=== PATIENT | male | born 1965 ===

== ENCOUNTER 2019-06-15 10:43 | Emergency (ER) | payer OTHER, MEDICAID, SELFPAY ==
[2019-06-15] VITALS (11 sets, daily range): BP systolic 116–142; BP diastolic 70–88; PULSE 81–98; RESP 14–21; TEMP 37.1; O2SAT 95–100; BMI 41.1
--- NOTE | 2019-06-15 | DI.CT.S_ITS ---
PROCEDURE: CT ABDOMEN PELVIS WO CON INDICATIONS: CT CYSTOGRAM per Dr. Jimenez TECHNIQUE: After the ministration of 10 mL of Cystografin through patient's Bustamante catheter into the bladder, 5 mm thick sections acquired from the diaphragms to the symphysis. 5 mm coronal and sagittal reformats were then performed. For radiation dose reduction, the following was used: automated exposure control, adjustment of mA and/or kV according to patient size. COMPARISON: [facility], US, US SCROTUM, 06/15/2019, 12:12. [facility], CT, CT CHEST ABD PEL W CON, 06/15/2019, 12:56. FINDINGS: Image quality: Excellent. ABDOMEN: Lung bases: There is mild dependent atelectasis bilaterally. Heart size is normal. Solid organs: Noncontrast evaluation of the liver demonstrates no lacerations. No perihepatic fluid collections. Gallbladder appears within normal limits without calcified gallstones. Pancreas is normal in contours. Spleen is normal in size. No adrenal nodules. Kidney demonstrate no hydronephrosis. There is contrast in the renal collecting systems from recent CT. Mild nonspecific perinephric stranding is redemonstrated bilaterally. Peritoneum and bowel: Small and large bowel loops demonstrate normal wall thickness and caliber. No free fluid or air. Nodes and vessels: No retroperitoneal or mesenteric adenopathy by size criteria. Aorta and inferior vena cava are normal in caliber. Miscellaneous: No ventral hernias. PELVIS: Genitourinary: There is no evidence of contrast extravasation to suggest a bladder perforation. A Bustamante catheter is demonstrated within the bladder with intraluminal gas. A small amount of contrast is noted in the distal right ureter which may represent reflux of contrast or excreted contrast from the renal collecting systems. Miscellaneous: A large right scrotal hematoma it is redemonstrated with extensive subcutaneous edema. No inguinal hernias or adenopathy. Bones: A relatively nondisplaced fracture of the left superior pubic ramus is redemonstrated. Bony pelvis otherwise appears intact. No vertebral body compression fractures. IMPRESSION: 1. No contrast extravasation to suggest bladder perforation. 2. Large right scrotal hematoma redemonstrated. 3. Nondisplaced left superior pubic ramus fracture also redemonstrated. Dictated by: Aditya Cristobal M.D. on 06/15/2019 at 16:21 Approved by: Aditya Cristobal M.D. on 06/15/2019 at 16:26
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
[2019-06-15 12:17] LABS: Appearance Urine UA SL CLOUDY; Color Urine UA YELLOW; Glucose Urine UA NEGATIVE (Negative); Ketones Urine UA TRACE (NEGATIVE); Leukocyte Esterase Urine UA NEGATIVE (NEGATIVE); Nitrite Urine UA NEGATIVE (Negative); Occult Blood Urine UA 3+ (Negative); Protein Urine UA 1+ (Negative); Specific Gravity Urine UA >=1.030 (1.000-1.035); Urobilinogen Urine UA 0.2 E.U./dL (0.2); pH Urine UA 5.5 (4.5-8.0)
[2019-06-15 12:28] LABS: Amorphous Sediment Urine 1+; Bacteria Urine Occasional (0-1); Calcium Oxalate Crystals Urine Moderate; Culture Indicated Urine Cult Not Indicated; RBC Urine 30-100/HPF (0-5/HPF); Squamous Epithelial Cell Urine 0-1 /HPF (0-5/HPF); WBC Urine 1-5/HPF (0-5/HPF)
[2019-06-15 12:31] LABS: Ictotest Urine Negative (Negative)
[2019-06-15 12:32] LABS: Bilirubin Urine UA 1+ (NEGATIVE)
[2019-06-15 12:40] LABS: Add Manual Diff / Slide Review NO; Basophils Absolute Auto 100 /uL (0-100); Basophils Percent Auto 0.6 % (0-2); Eosinophils Absolute Auto 200 /uL (0-450); Eosinophils Percent Auto 1.6 % (2-4); Hematocrit 36.5 % (41-53); Hemoglobin 12.3 g/dL (13.5-17.5); Lymphocytes Absolute Auto 1000 /uL (1100-4500); Lymphocytes Percent Auto 9.6 % (25-40); Mean Corpuscular HGB Conc 33.6 % (30-36); Mean Corpuscular Hemoglobin 29.6 PG (26-34); Mean Corpuscular Volume 88.3 fL (80-100); Monocytes Absolute Auto 1000 /uL (0-900); Monocytes Percent Auto 9.9 % (3-14); Neutrophils Absolute Auto 7900 /uL (1500-7000); Neutrophils Percent Auto 78.3 % (50-75); Platelet Count 242 X10^3/uL (150-400); Red Blood Cell Count 4.14 X10^6/uL (4.5-5.9); Red Cell Distribution Width 13.9 % (11.6-14.8); White Blood Cell Count 10.1 X10^3/uL (4.5-11.0)
[2019-06-15] MEDS: ONDANSETRON 4 MG/2 ML INJ IV (12:45)
[2019-06-15 12:51] LABS: Alanine Aminotransferase 28 IU/L (21-72); Albumin 3.7 g/dL (3.5-5.0); Albumin Globulin Ratio 1.3 (1.0-2.8); Alkaline Phosphatase 123 U/L (38-126); Aspartate Aminotransferase 29 IU/L (17-59); BUN Creatinine Ratio 17.1 (6-22); Bilirubin Total 0.4 mg/dL (0.2-1.3); Blood Urea Nitrogen 12 mg/dL (9-20); Calcium 8.8 mg/dL (8.4-10.2); Carbon Dioxide 26 mmol/L (22-32); Chloride 101 mmol/L (98-107); Creatine Kinase 308 U/L (55-170); Estimated Glomerular Filt Rate > 60.0 mL/min (>60); Globulin 2.8 g/dL (1.7-4.1); Glucose 118 mg/dL (70-100); HEMOLYSIS < 15 (0-50); Lipase 309 U/L (23-300); Potassium 3.8 mmol/L (3.4-5.1); Sodium 137 mmol/L (137-145); Total Protein 6.5 g/dL (6.3-8.2)
[2019-06-15 13:08] LABS: UR Morphine/Opiate cutoff 300 Negative (Negative); Ur Creatinine Normal (Normal); Ur Specific Gravity Abnormal (Normal); Urine Cocaine Negative (Negative); Urine Tetrahydrocannabinol Positive (Negative); Urine pH Normal (Normal)
[2019-06-15 13:09] LABS: Burprenorphine Negative (Negative); Urine Amphetamines Positive (Negative); Urine Barbiturates Negative (Negative); Urine Benzodiazepines Positive (Negative); Urine MDMA Positive (Negative); Urine Methadone Negative (Negative); Urine Methamphetamines Positive (Negative); Urine Morphine/Opi cutoff 2000 Negative (Negative); Urine Oxycodone Negative (Negative); Urine Phencyclidine Negative (Negative); Urine Tricyclic Antidepressant Positive (Negative)
[2019-06-15] MEDS: MORPHINE 4 MG/ML INJ IV (16:19)
[2019-06-15] MEDS: HYDROMORPHONE 0.5 MG INJ IV (18:25)
--- NOTE | 2019-06-15 18:35 | PC.NURSE ---
[facility] d/c, Pt tolerates.
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
== END 2019-06-15 19:20 | disposition home or self-care (01) ==
PROVIDERS: Emergency Provider Emergency Medicine; PCP Family Medicine
DX: S32.512A Fracture of superior rim of left pubis, initial encounter for closed fracture (principal); S30.22XA Contusion of scrotum and testes, initial encounter; V49.40XA Driver injured in collision with unspecified motor vehicles in traffic accident, initial encounter
CPT/HCPCS: 71260; 74176; 74177; 76870; 80053; 80305; 81003; 81015; 82550; 83690; 85025; 96374; 96375; 99284; 99285; J1170; J2270; J2405; Q9967

== ENCOUNTER 2019-06-21 17:08 | Emergency (ER) | payer OTHER, MEDICAID, SELFPAY ==
[2019-06-21 17:19] VITALS: BP 129/77; PULSE 93; RESP 12; TEMP 36.7; O2SAT 99; BMI 31.4
--- NOTE | 2019-06-21 17:51 | PC.NURSE ---
states with severe pain, im getting squeezed in on sunday for appt.
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
[2019-06-21] MEDS: KETOROLAC 60 MG/2 ML VIAL IM (18:33)
[2019-06-21] MEDS: ACETAMINOPHEN 325 MG TABLET 975 MG PO (19:07)
[2019-06-21] MEDS: LIDOCAINE PATCH 1 EACH ADH..PATCH TOP (19:08)
[2019-06-21 19:58] LABS: Ur Creatinine Normal (Normal); Ur Specific Gravity Normal (Normal); Urine pH Normal (Normal)
[2019-06-21 19:59] LABS: UR Morphine/Opiate cutoff 300 Negative (Negative); Urine Amphetamines Negative (Negative); Urine Barbiturates Negative (Negative); Urine Benzodiazepines Negative (Negative); Urine Cocaine Negative (Negative); Urine MDMA Negative (Negative); Urine Methadone Negative (Negative); Urine Methamphetamines Positive (Negative); Urine Oxycodone Negative (Negative); Urine Phencyclidine Negative (Negative); Urine Tetrahydrocannabinol Positive (Negative); Urine Tricyclic Antidepressant Negative (Negative)
[2019-06-21] MEDS: KETOROLAC 10MG PREPACK 1 BOTTLE MISC (20:31)
[2019-06-21 20:49] VITALS: BP 131/72; PULSE 88; RESP 14; O2SAT 98
== END 2019-06-21 20:50 | disposition home or self-care (01) ==
PROVIDERS: Emergency Provider Nurse Practitioner Family; PCP Family Medicine
DX: Z76.0 Encounter for issue of repeat prescription (principal); N50.82 Scrotal pain; V49.9XXD Car occupant (driver) (passenger) injured in unspecified traffic accident, subsequent encounter
CPT/HCPCS: 80305; 81003; 96372; 99283; J1885